=== PATIENT | female | born 1990 | race Caucasian/White ===

== ENCOUNTER 2019-01-09 16:04 | Emergency (ER) | payer OTHER ==
[2019-01-09 16:23] VITALS: BMI 27.4
--- NOTE | 2019-01-09 16:34 | PDOC ---
History of Present Illness - General Chief Complaint: Pain, Acute Stated Complaint: ABDOMINAL PAIN,10 WEEKS Time Seen by Provider: 01/09/19 16:27 History Source: Patient Exam Limitations: No Limitations - History of Present Illness Initial Comments: Pt is a 28 yo F, with no significant PMH, (confirmed at 10 weeks by US), who is presenting with complaints of decreased PO intake x3 days with nausea, and lower abdominal cramping since last night. Pt states she has had minimal appetite, and "just not feeling like eating" x3 days. Pt states the cramping pain was all across her lower abdomen, lasts for a few minutes, and then goes away. The pain does not radiate to her groin or back. Pt also notes her vaginal discharge has recently been "more yellow than usual". Pt denies any fevers/chills, headache, vision changes, syncope, chest pain, palpitations, SOB , vomiting, vaginal bleeding or passage of clots/tissue, urinary symptoms, diarrhea/constipation, or leg swelling. First was full term by . OB-IMAGING SCIENCE PROFESSOR: Dr. Anne, last seen 2 weeks ago for /STI testing and US. Social: Pt denies any cigarette, alcohol, or drug use. Pt denies any recent travel or sick contacts. Surgical: no relevant history. Family: no relevant history. 01/09/19 18:14 Past History - Travel Traveled outside of the country in the last 30 days: No Close contact w/someone who was outside of country & ill: No - Past Medical History Allergies/Adverse Reactions: Allergies Allergy/AdvReac Type Severity Reaction Status Date / Time No Known Allergies Allergy Verified 01/09/19 16:19 Home Medications: Ambulatory Orders Cephalexin Monohydrate [Keflex -] 500 mg PO BID 5 Days #10 capsule 01/09/19 COPD: No - Suicide/Smoking/Psychosocial Hx Smoking History: Current every day smoker Information on smoking cessation initiated: No Hx Alcohol Use: No Drug/Substance Use Hx: No Review of Systems - Review of Systems Able to Perform ROS?: Yes Is the patient limited Armenian proficient: No Constitutional: Yes: Loss of Appetite, Weight Stable. No: Chills, Diaphoresis, Fever, Malaise, Weakness HEENTM: No: Recent change in vision, Nose Congestion, Throat Pain, Throat Swelling Respiratory: No: Cough, Orthopnea, Shortness of Breath Cardiac (ROS): No: Chest Pain, Edema, Irregular Heart Rate, Lightheadedness, Palpitations, Syncope, Chest Tightness ABD/GI: Yes: See HPI, Nausea, Poor Appetite, Poor Fluid Intake, Abdominal cramping. No: Abdominal Distended, Constipated, Diarrhea, Vomiting, Indigestion : Yes: Discharge. No: Burning, Dysuria, Frequency, Hematuria, Pain, Urgency Musculoskeletal: No: Back Pain, Joint Pain, Muscle Weakness Integumentary: No: Rash Neurological: No: Headache, Numbness, Weakness, Unsteady Gait, Ataxia Psychiatric: No: Sleep Pattern Change, Change in Appetite Endocrine: No: Increased Urine, Change in Weight Hematologic/Lymphatic: No: Anemia, Blood Clots, Easy Bleeding, Easy Bruising All Other Systems: Reviewed and Negative *Physical Exam - Vital Signs Last Vital Signs Temp Pulse Resp BP Pulse Ox 98.2 F 99 H 16 113/71 100 01/09/19 16:20 01/09/19 16:20 01/09/19 16:20 01/09/19 16:20 01/09/19 16:20 - Physical Exam Comments: HR 99, BP 113/71, pt afebrile. Pt in NAD, normal body habitus. Pt alert and oriented x3. kitchen manager generally intact, muscular strength and sensation intact. Head normocephalic, atraumatic. Eyes PERRLA, EOMI. Oropharynx without erythema or exudates, no LAD b/l. No nasal congestion, hearing intact. Clear heart sounds, S1/S2, no JVD, b/l pedal edema, or heart murmur. Clear lung sounds, no respiratory distress, wheezes, crackles, or accessory muscle use. Diffuse lower abdominal tenderness to palpation, worse in suprapubic area. Fundal height appropriate for gestational age. No CVA tenderness to palpation, no rebound, no guarding. Abdomen soft, non-distended, and with normoactive bowel sounds. No external vaginal lesions, physiologic discharge noted. No CMT to palpation, cervix closed, no passage of blood/clots/tissue. Suprapubic and L adnexal tenderness to palpation. Extensive healed linear scars across volar L forearm (pt admits to past self cutting, no current issues). Dry oral mucosa and decreased skin turgor. Skin without jaundice or rash. 01/09/19 17:55 ED Treatment Course - LABORATORY CBC & Chemistry Diagram: 01/09/19 17:11 01/09/19 17:11 Medical Decision Making - Medical Decision Making Pt was seen at bedside, also will be seen by attending Dr. Frazier. Pt presenting with complaints of decreased PO intake x3 days with nausea, and lower abdominal cramping since last night. Pt states she has had minimal appetite, and "just not feeling like eating" x3 days. Pt states the cramping pain was all across her lower abdomen, lasts for a few minutes, and then goes away. The pain does not radiate to her groin or back. Pt also notes her vaginal discharge has recently been "more yellow than usual". Pt denies any fevers/chills, headache, vision changes, syncope, chest pain, palpitations, SOB, vomiting, vaginal bleeding or passage of clots/tissue, urinary symptoms, diarrhea/constipation, or leg swelling. Considering UTI vs normal cramping/ vs threatened . Pt has had confirmed IUP with , less likely ectopic or placental issues. Ordered work-up including CBC, CMP, beta-hcg, type and screen, UA, urine culture , transvaginal US (confirm IUP). Will continue to reassess pt and monitor for symptomatic improvement. 01/09/19 18:05 CBC: WBC 12, H/H stable UA: +LE and bacteria, will treat for UTI Providing 1 L IV NS, 650 mg PO tylenol, and 100 mg PO bactrim. Sent additional abx to pt pharmacy. Pt being taken to US. 01/09/19 18:24 beta: 74,631 --- consistent for 10 weeks CMP WNL 01/09/19 18:27 Pending transvaginal US read. Signed out to night team (Dr. Guido). 01/09/19 18:57 *DC/Admit/Observation/Transfer Diagnosis at time of Disposition: Abdominal cramping affecting - Prescriptions Prescriptions: Cephalexin Monohydrate [Keflex -] 500 mg PO BID 5 Days #10 capsule - Referrals - Patient Instructions - Post Discharge Activity
[2019-01-09 17:20] LABS: BASO % 0.7 % (0-2.0); EOS % 0.4 % (0-4.5); HEMATOCRIT 37.1 % (32.4-45.2); HEMOGLOBIN 12.5 GM/dL (10.7-15.3); LYMPH % 27.1 % (8-40); MCH 28.7 pg (25.7-33.7); MCHC 33.6 g/dl (32.0-36.0); MEAN CELL VOLUME 85.3 fl (80-96); MEAN PLT VOLUME 8.1 fl (7.5-11.1); MONO % 3.6 % (3.8-10.2); NEUT % 68.2 % (42.8-82.8); PLATELET COUNT 288 K/MM3 (134-434); RBC 4.35 M/mm3 (3.60-5.2); RDW 12.3 % (11.6-15.6); WHITE BLOOD COUNT 12.4 K/mm3 (4.0-10.0)
[2019-01-09 17:25] LABS: EPI CELLS 5.5 /HPF (0-5/HPF); PH,URINE 6.5 (5.0-8.0); URINE APPEARANCE CLEAR; URINE BILIRUBIN NEGATIVE (NEGATIVE); URINE CASTS 2 /hpf (0-8); URINE COLOR YELLOW; URINE GLUCOSE (UA) NEGATIVE (NEGATIVE); URINE KETONE NEGATIVE (NEGATIVE); URINE LEUK ESTERASE 1+ (NEGATIVE); URINE NITRITE NEGATIVE (NEGATIVE); URINE PROTEIN NEGATIVE (NEGATIVE); URINE RBC 2 /hpf (0-4); URINE WBC 6 /hpf (0-5)
[2019-01-09] MEDS ORDERED: NITROFURANTOIN MACROCRYSTAL 50 MG CAPSULE (FP) PO SCH (17:45)
[2019-01-09] MEDS ORDERED: NITROFURANTOIN MACROCRYSTAL 50 MG CAPSULE (FP) ONE (17:48)
[2019-01-09 18:06] LABS: ALBUMIN 3.6 g/dl (3.4-5.0); ALK PHOS 47 U/L (45-117); ANION GAP 9 MMOL/L (8-16); BILIRUBIN,TOTAL 0.1 mg/dL (0.2-1); BLOOD UREA NITROGEN 7 mg/dL (7-18); CALCIUM 8.6 mg/dL (8.5-10.1); CHLORIDE 109 mmol/L (98-107); CO2 21 mmol/L (21-32); CREATININE 0.6 mg/dL (0.55-1.3); GLUCOSE,RANDOM 70 mg/dL (74-106); POTASSIUM 3.7 mmol/L (3.5-5.1); SGOT/AST 14 U/L (15-37); SGPT/ALT 20 U/L (13-61); SODIUM 139 mmol/L (136-145); TOT PROT 7.1 g/dl (6.4-8.2)
[2019-01-09] MEDS ORDERED: SODIUM CHLORIDE 1,000 ML IV STA (18:10)
[2019-01-09] MEDS ORDERED: ACETAMINOPHEN 1000 MG/100 ML VIAL (NON FORMULARY) IVPB ONE (18:10)
--- NOTE | 2019-01-09 18:15 | PDOC ---
Attending Attestation - Resident Resident Name: CamposSoni - ED Attending Attestation I have performed the following: I have examined & evaluated the patient, The case was reviewed & discussed with the resident, I agree w/resident's findings & plan, Exceptions are as noted - HPI HPI: 01/09/19 18:11 The patient is a 28 year old female , @ 10 weeks, here today for evaluation of lower abdominal cramping. The patient reports that her abdominal cramping began last night, is intermittent, is localized to the lower abdomen, and comes in episodes lasting a few minutes. She also notes associated nausea without vomiting. Patient reports that she is 10 weeks and had an US at her OB s office recently that confirmed the . Pt denies vaginal bleeding/ discharge. Patient denies headache, lightheadedness. Denies fever, chills. Denies chest pain, shortness of breath. Denies vomiting, diarrhea. Allergies: NKA OB: Kyon - Physicial Exam PE: 01/09/19 18:15 "GENERAL: Awake, alert, and fully oriented, in no acute distress. HEAD: No signs of trauma EYES: PERRLA, EOMI, sclera anicteric, conjunctiva clear ENT: Auricles normal inspection, hearing grossly normal, nares patent, oropharynx clear without exudates. Moist mucosa NECK: Nontender, no stepoffs, Normal ROM, supple, no lymphadenopathy, JVD, or masses LUNGS: Breath sounds equal, clear to auscultation bilaterally. No wheezes, and no crackles HEART: Regular rate and rhythm, normal S1 and S2, no murmurs, rubs or gallops ABDOMEN: Soft, nontender, normoactive bowel sounds. No guarding, no rebound. No masses EXTREMITIES: Normal range of motion, no edema. No clubbing or cyanosis. No cords, erythema, or tenderness NEUROLOGICAL: Cranial nerves II through XII intact. 5/5 strength and sensation in all extremities, Normal speech, normal gait, normal cerebellar function SKIN: Warm, Dry, normal turgor, no rashes or lesions noted. - Medical Decision Making 01/09/19 18:15 28 F with suprapubic pain. Possible round ligament pain. Will evaluate for UTI. Pt also with confirmed IUP, making ectopic unlikely. No evidence of PID or other infection on exam. - Labs, UA, UCx - IVF, tylenol - TVUS 01/09/19 18:48 Labs wnl TVUS pending 01/09/19 18:59 Pt signed out to oncoming attending at 7PM, pending TVUS report and re- evaluation.
[2019-01-09] MEDS ORDERED: ACETAMINOPHEN 325 MG TABLET (FP) PO ONE (18:22)
[2019-01-09] MEDS ORDERED: ACETAMINOPHEN 325 MG TABLET (FP) ONE (18:23)
--- NOTE | 2019-01-09 19:01 | PDOC ---
*Physical Exam - Vital Signs Last Vital Signs Temp Pulse Resp BP Pulse Ox 98.2 F 99 H 16 113/71 100 01/09/19 16:20 01/09/19 16:20 01/09/19 16:20 01/09/19 16:20 01/09/19 16:20 - Physical Exam General Appearance: Yes: Nourished, Appropriately Dressed. No: Apparent Distress HEENT: positive: Normal ENT Inspection, Normal Voice Neck: positive: Supple Respiratory/Chest: positive: Lungs Clear, Normal Breath Sounds. negative: Respiratory Distress Cardiovascular: positive: Regular Rhythm, Regular Rate Gastrointestinal/Abdominal: positive: Soft Rectal Exam: positive: deferred Extremity: positive: Normal Capillary Refill, Normal Inspection, Normal Range of Motion Integumentary: positive: Normal Color, Dry, Warm Neurologic: positive: Fully Oriented, Alert, Normal Mood/Affect ED Treatment Course - LABORATORY CBC & Chemistry Diagram: 01/09/19 17:11 01/09/19 17:11 - ADDITIONAL ORDERS Additional order review: Laboratory Results 01/09/19 01/09/19 01/09/19 17:13 17:11 17:11 Sodium 139 Potassium 3.7 Chloride 109 H Carbon Dioxide 21 Anion Gap 9 BUN 7 Creatinine 0.6 Creat Clearance w eGFR 119.04 Random Glucose 70 L Calcium 8.6 Total Bilirubin 0.1 L AST 14 L ALT 20 Alkaline Phosphatase 47 Total Protein 7.1 Albumin 3.6 Beta HCG, Quant 17030.3 Urine Color Yellow Urine Appearance Clear Urine pH 6.5 Ur Specific Post 1.021 Urine Protein Negative Urine Glucose (UA) Negative Urine Ketones Negative Urine Blood Negative Urine Nitrite Negative Urine Bilirubin Negative Urine Urobilinogen 1.0 Ur Leukocyte Esterase 1+ H Urine WBC (Auto) 6 Urine RBC (Auto) 2 Urine Casts (Auto) 2 U Epithel Cells (Auto) 5.5 Urine Bacteria (Auto) 187.0 Blood Type A POSITIVE Antibody Screen Negative 01/09/19 17:11 RBC 4.35 MCV 85.3 MCHC 33.6 RDW 12.3 MPV 8.1 Neutrophils % 68.2 Lymphocytes % 27.1 Monocytes % 3.6 L Eosinophils % 0.4 Basophils % 0.7 - RADIOLOGY Radiograph Interpretation: TVUS: FINDINGS: There is a single live intrauterine gestation with heart rate of 168 bpm Approximate age of 10 weeks, 2 days by mean crown-rump length of 3.44 cm Amniotic fluid volume is subjectively adequate No evidence of subchorionic hemorrhage The cervix is closed and measures 3.2 cm in length Right ovarian cyst measuring 3.4 x 2.5 x 3.4 cm - Medications Given in the ED: ED Medications Discontinued Medications Generic Name Dose Route Start Last Admin Trade Name Jacyln PRN Reason Stop Dose Admin Acetaminophen 1,000 mg 01/09/19 18:10 01/09/19 18:27 Ofirmev Injection - IVPB 01/09/19 18:11 Not Given ONCE ONE Acetaminophen 650 mg 01/09/19 18:22 01/09/19 18:26 Tylenol - PO 01/09/19 18:23 650 mg ONCE ONE Administration Medical Decision Making - Medical Decision Making Patient signed out to me pending results for a TVUS. TVUS - FINDINGS: There is a single live intrauterine gestation with heart rate of 168 bpm Approximate age of 10 weeks, 2 days by mean crown-rump length of 3.44 cm Amniotic fluid volume is subjectively adequate No evidence of subchorionic hemorrhage The cervix is closed and measures 3.2 cm in length Right ovarian cyst measuring 3.4 x 2.5 x 3.4 cm Will DC patient to OB w script for UTI and OB follow up. I explained to the patient her care in the ER today including the results of her UTI and ovarian cyst. The patient stated she will follow up with her OB doc in 2 days time and understands what to come back to the ER for. The patient expressed happiness with her results and said she had no further questions or concerns regarding her visit today. *DC/Admit/Observation/Transfer Diagnosis at time of Disposition: Abdominal cramping affecting - Prescriptions Prescriptions: Cephalexin Monohydrate [Keflex -] 500 mg PO BID 5 Days #10 capsule - Referrals Referrals: [facility] [place] [facility] [place] [Provider Group] - Patient Instructions Printed Discharge Instructions: Urinary Tract Infection, DI for Ovarian Cyst Additional Instructions: You came into the ER with abdominal pain. We did an US which showed you have a small cyst in your ovary and have a small urinary tract infection. Please make sure to schedule a follow up with your night warehouse manager in the next 2 to 4 days to make sure you are being taken care of and getting better. Please make sure to go fruit or nut picker the keflex antibiotics from your pharmacy for your urinary tract infection. Come back to the ER immediately if your pain worsens, you get a fever, have abnormal vaginal discharge, or any other new or worsening concerns. You will get a call back from the hospital in 3 days time regarding the results to your STD test that you took here in the ER today. Thank you for coming to the [facility] ER. We hope you feel better soon! Print Language: SINHALA - Post Discharge Activity
--- NOTE | 2019-01-09 19:39 | PDOC ---
*Physical Exam - Vital Signs Last Vital Signs Temp Pulse Resp BP Pulse Ox 98.2 F 99 H 16 113/71 100 01/09/19 16:20 01/09/19 16:20 01/09/19 16:20 01/09/19 16:20 01/09/19 16:20 ED Treatment Course - LABORATORY CBC & Chemistry Diagram: 01/09/19 17:11 01/09/19 17:11 - ADDITIONAL ORDERS Additional order review: Laboratory Results 01/09/19 01/09/19 01/09/19 17:13 17:11 17:11 Sodium 139 Potassium 3.7 Chloride 109 H Carbon Dioxide 21 Anion Gap 9 BUN 7 Creatinine 0.6 Creat Clearance w eGFR 119.04 Random Glucose 70 L Calcium 8.6 Total Bilirubin 0.1 L AST 14 L ALT 20 Alkaline Phosphatase 47 Total Protein 7.1 Albumin 3.6 Beta HCG, Quant 59613.3 Urine Color Yellow Urine Appearance Clear Urine pH 6.5 Ur Specific Pisek 1.021 Urine Protein Negative Urine Glucose (UA) Negative Urine Ketones Negative Urine Blood Negative Urine Nitrite Negative Urine Bilirubin Negative Urine Urobilinogen 1.0 Ur Leukocyte Esterase 1+ H Urine WBC (Auto) 6 Urine RBC (Auto) 2 Urine Casts (Auto) 2 U Epithel Cells (Auto) 5.5 Urine Bacteria (Auto) 187.0 Blood Type A POSITIVE Antibody Screen Negative 01/09/19 17:11 RBC 4.35 MCV 85.3 MCHC 33.6 RDW 12.3 MPV 8.1 Neutrophils % 68.2 Lymphocytes % 27.1 Monocytes % 3.6 L Eosinophils % 0.4 Basophils % 0.7 - Medications Given in the ED: ED Medications Discontinued Medications Generic Name Dose Route Start Last Admin Trade Name Urielq PRN Reason Stop Dose Admin Acetaminophen 1,000 mg 01/09/19 18:10 01/09/19 18:27 Ofirmev Injection - IVPB 01/09/19 18:11 Not Given ONCE ONE Acetaminophen 650 mg 01/09/19 18:22 01/09/19 18:26 Tylenol - PO 01/09/19 18:23 650 mg ONCE ONE Administration Sodium Chloride 1,000 mls @ 1,000 mls/hr 01/09/19 18:10 01/09/19 18:22 Normal Saline - IV 01/09/19 19:09 1,000 mls/hr ASDIR STA Administration Medical Decision Making - Medical Decision Making 01/09/19 19:38 Patient Name: MARILOU COHEN THIS IS A PRELIMINARY REPORT FROM IMAGING SUPERVISING APPRAISER DATE OF SERVICE: 2019-01-09 17:43:28 IMAGES: 28 EXAM: <14WKS US HISTORY: with lower abdominal pain COMPARISON: None. FINDINGS: There is a single live intrauterine gestation with heart rate of 168 bpm Approximate age of 10 weeks, 2 days by mean crown-rump length of 3.44 cm Amniotic fluid volume is subjectively adequate No evidence of subchorionic hemorrhage The cervix is closed and measures 3.2 cm in length Right ovarian cyst measuring 3.4 x 2.5 x 3.4 cm Normal left ovary No evidence of ovarian torsion No adnexal masses visualized No free fluid THIS DOCUMENT HAS BEEN ELECTRONICALLY SIGNED Pt is stable to go home with abx for her UTI; she will follow with HOME SCHOOL TEACHER *DC/Admit/Observation/Transfer Diagnosis at time of Disposition: Abdominal cramping affecting - Prescriptions Prescriptions: Cephalexin Monohydrate [Keflex -] 500 mg PO BID 5 Days #10 capsule - Referrals - Patient Instructions - Post Discharge Activity
[2019-01-09 19:47] VITALS: BP 116/68; PULSE 83; TEMP 98.1
== END 2019-01-09 19:49 | disposition home or self-care (01) ==
LOC: JER 16:04
PROC: 3E0337Z Introduction of Electrolytic and Water Balance Substance into Peripheral Vein, Percutaneous Approach (ICD-10-PCS; principal; 2019-01-09)
DX: O23.31 Infections of other parts of urinary tract in pregnancy, first trimester (principal); Z3A.10 10 weeks gestation of pregnancy
CPT/HCPCS: 36415; 76801-TC; 80053; 81003; 84702; 85025; 86850; 86900; 86901; 87086; 87110; 87491; 87591; 96360; 99282-25; J7030

== ENCOUNTER 2019-02-08 16:07 | Emergency (ER) | payer OTHER | END 2019-02-08 20:25 | disposition home or self-care (01) | LOC: JER 16:07 ==